=== PATIENT | male | born 1955 | race Caucasian/White ===

== ENCOUNTER 2023-08-01 05:58 | Day surgery (SDC) | payer OTHER ==
[2023-08-01] VITALS (12 sets, daily range): BP systolic 120–155; BP diastolic 63–83; PULSE 51–66; RESP 14–20
[~2023-08-01] VITALS: Ht 177.8 cm; Wt 74.8 kg
[~2023-08-01 05:58] MED LIST: CARB1DRO40 OP; CYAN100099 PO; DICLOFENAC TOPICAL TP; FAMO40TA7 PO; LEVO-70 PO; LISI10TA24 PO; LORA10TA7 PO; METO5TAB2 PO; PANT40TA54 PO; SIMVASTATIN PO
[2023-08-01] MEDS: 0.9%NACL 1000ML 1,000 ML IV ONE (06:45)
[2023-08-01] MEDS ORDERED: LIDOCAINE HCL 1% 20 ML VIAL ONE (07:06)
[2023-08-01] MEDS ORDERED: PROPOFOL 10 MG/ML 20ML VIAL IV ONE ×3 (07:06→07:37)
== END 2023-08-01 09:10 | disposition home or self-care (01) ==
LOC: ENDO 05:58 → DAH 05:58 → ENDO 09:10
PROVIDERS: ATTEND Internal Medicine Gastroenterology
DX: R93.3 Abnormal findings on diagnostic imaging of other parts of digestive tract (principal); R93.2 Abnormal findings on diagnostic imaging of liver and biliary tract; K22.2 Esophageal obstruction; R13.10 Dysphagia, unspecified; I10 Essential (primary) hypertension; E78.2 Mixed hyperlipidemia; K44.9 Diaphragmatic hernia without obstruction or gangrene; K80.20 Calculus of gallbladder without cholecystitis without obstruction; E11.43 Type 2 diabetes mellitus with diabetic autonomic (poly)neuropathy; K31.84 Gastroparesis; F32.A Depression, unspecified; Z79.899 Other long term (current) drug therapy; Z79.01 Long term (current) use of anticoagulants
CPT/HCPCS: 43238; 43248; J7030; J2704 ×3; A4620; A4215 ×3; A4223; A4222; A4221; A4663; A4606; J3490

== ENCOUNTER 2024-10-16 11:36 | Emergency (ER) | payer OTHER, MEDICARE ==
[~2024-10-16] VITALS: Ht 177.8 cm; Wt 73.5 kg
[~2024-10-16 11:36] MED LIST changes: +CYAN-37 PO; -CYAN100099 PO
--- NOTE | 2024-10-16 11:55 | ERN ---
ED Note History of Present Illness Stated Complaint: FEVER, WEAKNESS Chief Complaint: Fever Time Seen by MD: 11:39 Dictation: PATIENT IS A 68-YEAR-OLD MALE HERE WITH HIS WITH COMPLAINTS OF FEVER CHILLS GENERALIZED BODY WEAKNESS AND ESOPHAGEAL PAIN HE HAS HAD FOR SEVERAL DAYS. NO NAUSEA VOMITING. HE STATES HE DOES NOT HAVE AN APPETITE. STATES HE HAD A RECENT EGD 3-4 DAYS AGO BY AT [facility], WAS TOLD HE HAD ESOPHAGEAL INFLAMMATION. HE STATES HE WAS GOING TO BE STARTED ON S OME MEDICATIONS THAT WERE SENT TO THE [facility] HOWEVER THEY WERE NOT READY OF TODAY. HE STATES HE CAME IN TODAY FOR FURTHER EVALUATION AND TREATMENT. STATES HE IS NO LONGER ON CHEMOTHERAPY FOR HIS ESOPHAGEAL CANCER. STATES HE WAS SEEING AT [facility] FOR CHEMOTHERAPY, THAT IS STOPPED LAST YEAR AND HE WAS TOLD HE WAS IN REMISSION. Allergies: Coded Allergies: Iodinated Contrast Media (Unverified Allergy, Unknown, 07/31/23) naproxen (Unverified Allergy, Unknown, 07/31/23) Home Meds Reported Medications Carboxymethylcellulose Sodium (Carboxymethylcellulose Sodium) 0.5 % Droperette, 1 EACH OP BID, DROP 07/31/23 Loratadine (Loratadine) 10 Mg Tablet, 10 MG PO HS, TAB 07/31/23 Lisinopril (Lisinopril) 10 Mg Tablet, 10 MG PO HS, TAB 07/31/23 [Diclofenac Topical] No Conflict Check, 1 % TP AM 07/31/23 Famotidine (Famotidine) 40 Mg Tablet, 40 MG PO HS, TAB 07/31/23 Cyanocobalamin (Vitamin B-12) (B-12) 1,000 Mcg Tablet, 1000 MCG PO AM, TAB 07/31/23 Pantoprazole Sodium (Pantoprazole Sodium) 40 Mg Tablet.dr, 40 MG PO AM, TAB 07/31/23 Metoclopramide HCl (Metoclopramide HCl) 5 Mg Tablet, 5 MG PO QID, TAB 07/31/23 Levofloxacin (Levofloxacin) 500 Mg Tablet, 500 MG PO AM, TAB 07/31/23 [Simvastatin] No Conflict Check, 80 MG PO HS 07/31/23 Past Medical History Past Medical History: Cancer, GERD, High Cholesterol, Hypertension Additional Past Medical Hx: HX OF ESOPHAGEAL CA, HIALTAL HERNIA Surgical History: Other Surgical History Other: NECK RN Note Reviewed/Agreed w/PFSH: Yes Review of System Dictation CONSTITUTIONAL: NEGATIVE EXCEPT FOR HPI HEAD/FACE: NEGATIVE EXCEPT FOR HPI EENT: NEGATIVE EXCEPT FOR HPI RESPIRATORY: NEGATIVE EXCEPT FOR HPI GASTROINTESTINAL/ABDOMINAL: NEGATIVE EXCEPT FOR HPI PATIENT STATES HE HAS A BURNING SENSATION FROM ESOPHAGUS DOWN TO EPIGASTRIUM GENITOURINARY: NEGATIVE EXCEPT FOR HPI MUSCULOSKELETAL: NEGATIVE EXCEPT FOR HPI INTEGUMENTARY: NEGATIVE EXCEPT FOR HPI NEUROLOGICAL/PSYCH: NEGATIVE EXCEPT FOR HPI HEMATOLOGIC/LYMPHATIC: NEGATIVE EXCEPT FOR HPI ALL SYSTEMS NEGATIVE, EXCEPT NOTED ABOVE. 13 POINT REVIEW OF SYSTEMS ASSESSED AND ALL NEGATIVE EXCEPT FOR ABOVE. Initial Vital Sign VS Vital Signs Date Time Temp Pulse Resp B/P (MAP) Pulse Ox O2 Delivery O2 Flow Rate FiO2 10/16/24 11:38 99.9 96 16 145/89 98 Room Air 0 10/16/24 12:03 21 Physical Exam Dictation VITAL SIGNS REVIEWED GENERAL APPEARANCE: ALERT, ORIENTED X 3, NO ACUTE DISTRESS, WELL DEVELOPED, NOURISHED. HEAD AND FACE: NON-TRAUMATIC. EYES: PERRL, PINK CONJUNCTIVAS, EYELID NO TRAUMA, ANTERIOR CHAMBER WITH ARCUS SENILIS. EARS: PINNAS INTACT AND NO SIGNS OF TRAUMA OR ERYTHEMA EAR CANALS CLEAR AND NO DISCHARGE TM NO ERYTHEMA NOSE: NO DISCHARGE, NO BLEEDING. OROPHARYNX: MOUTH NORMAL, TONGUE PINK, PHARYNX CLEAR,NO ERYTHEMA, TONSILS NO EXUDATES, NO ABSCESSES NOTED, MUCOUS MEMBRANE MOIST NECK: SUPPLE, NON-TENDER, NO THYROMEGALY, NO MASSES, NO JVD, NO BRUITS BREAST:DEFERRED CHEST:NO TENDERNESS, NO CREPITUS, NO PARADOXICAL MOVEMENT, NO RETRACTIONS LUNGS:CLEAR, WELL-VENTILATED, SYMMETRIC, NO RALES, NO WHEEZING, NO RHONCHI, NO STRIDOR, GOOD BREATH SOUNDS BILATERALLY HEART: REGULAR RATE, REGULAR RHYTHM, NO MURMUR, NO GALLOPS VASCULAR: NO PERIPHERAL EDEMA, ABDOMEN: SOFT, POSITIVE BOWEL SOUNDS, NONDISTENDED, NO GUARDING, MILD EPIGASTRIC TENDERNESS, NO REBOUND, NO MASSES NO HEPATOMEGALY, NO SPLENOMEGALY, NO LAWSON'S SIGN, NO HERNIAS. RECTAL: DEFERRED GENITAL: DEFERRED NEUROLOGICAL: NORMAL SPEECH, MOTOR FUNCTION INTACT, SENSORY FUNCTION INTACT MUSCULOSKELETAL: NECK NONTENDER, FULL RANGE OF MOTION, BACK NONTENDER, FULL RANGE OF MOTION, EXTREMITIES: NONTENDER, FULL RANGE OF MOTION SKIN: COLOR PINK, DRY, NO TURGOR, NO RASH, NO LACERATIONS, NO ABRASIONS, NO CONTUSIONS. LYMPHATIC: DEFERRED Results (Laboratory/Radiology) Laboratory/Radiology Laboratory Tests Test 10/16/24 12:20 White Blood Count 6.4 K/uL (4.8-10.8) Red Blood Count 4.36 MIL/uL (4.50-6.20) L Hemoglobin 14.0 g/dL (14.0-18.0) Hematocrit 41.4 % (42-54) L Mean Corpuscular Volume 95.0 fL (79-99) Mean Corpuscular Hemoglobin 32.1 pg (27.0-33.0) Mean Corpuscular Hemoglobin Concent 33.8 g/dL (32.0-36.0) Red Cell Distribution Width 14.8 % (11.0-15.5) Platelet Count 177 K/uL (130-400) Mean Platelet Volume 9.0 fL (7.5-10.5) Immature Granulocyte % (Auto) 0.3 % (0-1) Neutrophils (%) (Auto) 80.5 % (40.0-77.0) H Lymphocytes (%) (Auto) 9.1 % (21.0-51.0) L Monocytes (%) (Auto) 9.6 % (3.0-13.0) Eosinophils (%) (Auto) 0.2 % (0.0-8.0) Basophils (%) (Auto) 0.3 % (0.0-5.0) Neutrophils # (Auto) 5.1 K/uL (1.8-7.7) Lymphocytes # (Auto) 0.6 K/uL (1.0-4.8) L Monocytes # (Auto) 0.6 K/uL (0.1-1.0) Eosinophils # (Auto) 0.01 K/uL (0.00-0.70) Basophils # (Auto) 0.02 K/uL (0.00-0.20) Absolute Immature Granulocyte (auto 0.02 K/uL (0-1) Nucleated Red Blood Cells 0.0 % (0.0-0.19) White Cell Morphology Comment See comments Sodium Level 131 mmol/L (136-145) L Potassium Level 3.9 mmol/L (3.5-5.1) Chloride Level 95 mmol/L (101-111) L Carbon Dioxide Level 26 mmol/L (21-32) Blood Urea Nitrogen 11 mg/dL (7-18) Creatinine 0.7 mg/dL (0.5-1.3) Glomerular Filtration Rate Calc 100 mL/min (>90) Random Glucose 100 mg/dL (70-105) Lactic Acid Level 1.3 mmol/L (0.8-2.5) Total Calcium 8.7 mg/dL (8.5-10.1) Troponin I High Sensitivity 9 ng/L (4-75) Lipase 33 U/L (16-77) Labs Reviewed?: Yes EKG Comment: EKG HE SINUS RHYTHM/HEART RATE 80/AXIS NORMAL/LEFT ATRIAL ENLARGEMENT ED Course ED Course Orders Procedure Category Date Status Time Cbc With Differential LAB 10/16/24 Complete 11:45 Troponin I High LAB 10/16/24 Complete Sensitivity 11:45 12 Lead Ekg Tracing- EKG 10/16/24 Complete Technical 11:45 Pantoprazole 40mg Inj PHA 10/16/24 Complete (Protonix 40mg Inj 12:00 Lipase LAB 10/16/24 Complete 11:45 Basic Metabolic Panel LAB 10/16/24 Complete 11:45 Blood Cult COLLINS 10/16/24 In Process 11:47 Lactic Acid LAB 10/16/24 Complete 11:47 0.9%Nacl 1000ml (Ns PHA 10/16/24 Complete 1000ml) 12:00 Urinalysis Profile LAB 10/16/24 Logged 11:47 Lidocaine Hcl 2% PHA 10/16/24 Complete Viscous (Lidocaine Hcl 12:00 Mag/Alum/Simeth 30ml PHA 10/16/24 Complete (Maalox Plus 30ml) 12:00 Dicyclomine Hcl PHA 10/16/24 Complete (Bentyl 10mg/5ml 12:00 Current Medications Medications (Trade) Dose Ordered Sig/Osman Route PRN Reason Start Time Stop Time Status Last Admin Dose Admin Al Hydroxide/Mg Hydroxide (MAALox PLUS 30ML) 30 ml ONCE ONCE PO 10/16/24 12:00 10/16/24 12:01 DC 10/16/24 12:11 Dicyclomine HCl (Bentyl 10mg/5ml Syrup) 10 mg ONCE ONCE PO 10/16/24 12:00 10/16/24 12:01 DC 10/16/24 12:13 Lidocaine HCl (Lidocaine HCl 2% Viscous) 10 ml ONCE ONCE PO 10/16/24 12:00 10/16/24 12:01 DC 10/16/24 12:11 Pantoprazole Sodium (PROTonix 40MG INJ) 40 mg ONCE ONCE IVP 10/16/24 12:00 10/16/24 12:01 DC 10/16/24 12:14 Sodium Chloride 1,000 ml @ 0 mls/hr ONCE ONCE IV 10/16/24 12:00 10/16/24 12:01 DC 10/16/24 12:16 Vital Signs Date Time Temp Pulse Resp B/P (MAP) Pulse Ox O2 Delivery O2 Flow Rate FiO2 10/16/24 12:03 98.4 104 18 156/86 97 Room Air* 0 21 10/16/24 11:38 99.9 96 16 145/89 98 Room Air 0 1420/WITH PATIENT AT LENGTH REGARDING CLINICAL FINDINGS AND TREATMENT FOR A SALPINGITIS BASED ON HIS RECENT ENDOSCOPY BY . HE STATES HE SMOKES CIGARETTES AND DRINKS SEVERAL CUPS OF COFFEE DAILY ALONG WITH DIET PEPSI. ADDITIONALLY HE SAID HE EATS SPICY FOODS. I ADVISED HIM THAT THE TREATMENT FOR ESOPHAGITIS WAS DIETARY MODIFICATIONS, LIFESTYLE CHANGES AND MEDICATIONS. 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 I WE WILL START HIM ON CARAFATE AND OMEPRAZOLE. AT THE BEDSIDE AND THEY BOTH SAID THEY UNDERSTOOD THE INSTRUCTIONS HEART Score Response (Comments) Value EKG: Repolarization changes 1 Age: > 65yrs (+2) 2 Risk Factors: 1-2 risk factors (+1) 1 Initial Troponin: Normal limit (0) 0 Total 4 Medical Decision Making MDM MDM: DIFFERENTIAL DIAGNOSIS: ACS/AMI/GASTRITIS/ESOPHAGITIS/ELECTROLYTE IMB ALANCE/DEHYDRATION RATIONALE: TESTS CONSIDERED AND ORDERED SECONDARY TO SHARED DECISION MAKING INCLUDE: MEDICATION/LABS/EKG PREVIOUS OUTSIDE RECORDS REVIEWED: OLD ER VISITS. RISK OF COMPLICATION AND/OR MORBIDITY OR MORTALITY OF PATIENT MANAGEMENT: NONE MEDICATIONS-PER MEDICATION RECONCILIATION NEED FOR HOSPITALIZATION: PATIENT DOES NOT MEET CRITERIA FOR HOSPITALIZATION. NO NEED FOR EMERGENCY MAJOR/MINOR SURGERY: NO THERE ARE NO SOCIAL CONCERNS WITH THIS PATIENT. PATIENT ABUSES TOBACCO, DRINKS ALCOHOL SOCIALLY, SODA POP DAILY PRESCRIPTION DRUG MANAGEMENT CARAFATE/OMEPRAZOLE PRESCRIPTIONS WILL INCLUDE SYMPTOMATIC CARE PATIENT'S PRIOR EXTERNAL MEDICAL RECORDS FROM OTHER ER VISITS WERE REVIEWED BY ME INDICATED. PRIOR TESTING AND RESULTS FROM PREVIOUS VISITS WERE REVIEWED. PRIOR TESTS WERE TAKEN INTO ACCOUNT WITH MEDICAL DECISION MAKING AND RESOURCE UTILIZATION, INDEPENDENT HISTORIAN/HISTORIANS WERE USED TO OBTAIN COMPLETE MEDICAL HISTORY. I INDEPENDENTLY INTERPRETED THE TEST THAT WERE PERFORMED, RESULTS WERE REVIEWED BY ME AND CONSIDERED FINDINGS ON RADIOLOGY IF ORDERED. MEDICAL MANAGEMENT AND EXAMINATION INTERPRETATION DISCUSSIONS WERE HAD BY ME WITH OTHER QUALIFIED HEALTHCARE PROFESSIONALS INDICATED FOR THE PATIENT'S CARE. DX & DISP Disposition: Discharge Departure Impression: Primary Impression: Esophagitis Additional Impressions: Hyponatremia, Hypochloremia, Tobacco abuse Condition: Stable Scripts Sucralfate (Carafate) 1 Gram Tablet 1 GM PO ACHS for 10 Days, #40 TAB Prov: GENA WINCHESTER BALLING HEAD TENDER 10/16/24 Omeprazole (Omeprazole) 40 Mg Capsule.dr 1 CAP PO DAILY for 30 Days, #30 CAP 0 Refills Prov: GENA WINCHESTER BALLING HEAD TENDER 10/16/24 Additional Instructions: FOLLOW-UP WITH PRIMARY CARE PROVIDER IN 1 TO 2 DAYS. TAKE MEDICATIONS DIRECTED HERE IN THE EMERGENCY ROOM. OKAY TO CONTINUE HOME MEDICATIONS UNLESS OTHERWISE DISCUSSED DURING YOUR VISIT IN THE EMERGENCY ROOM TODAY. RETURN TO YOUR NEAREST EMERGENCY ROOM IF SYMPTOMS WORSEN OR IF THERE IS NO IMPROVEMENT. CALL 911 IF YOU NEED IMMEDIATE ASSISTANCE. TAKE TYLENOL OR MOTRIN [id number] NEEDED AND IF NO CONTRAINDICATIONS ARE PRESENT. INCREASE ORAL HYDRATION. A WOUND CULTURE OR URINE CULTURE WAS ORDERED HERE IN THE EMERGENCY ROOM DEPARTMENT PLEASE FOLLOW-UP WITH PRIMARY CARE PROVIDER AND ADVISE THEM TO GET REPEAT PORTS FROM OUR FACILITY. IF YOU HAD ANY LUKE WRAP/SPLINTS THAT WERE APPLIED HERE, PLEASE DO NOT REMOVE THEM UNTIL YOU SEE YOUR PRIMARY CARE OR SPECIALTY. STOP SMOKING. WATER FOR FLUIDS ONLY WITH MEALS. STOP ALCOHOL, TOBACCO, SPICY FOODS, CITRUS FRUIT JUICE, SODA POP, ICE TEA, COFFEE UNTIL CLEARED BY YOUR SQL PROGRAMMER ANALYST. Referrals: SELF,REFERRAL (PCP) Time of Disposition: 14:23 I have reviewed the case, and I agree with, Diagnosis and Plan GENA WINCHESTER NP Oct 16, 2024 11:55
[2024-10-16] MEDS: MAG/ALUM/SIMETH 30 ML UDCUP PO ONE (12:11)
[2024-10-16] MEDS: LIDOCAINE HCL 2% VISCOUS 15 ML UDCUP PO ONE (12:11)
[2024-10-16] MEDS: DICYCLOMINE HCL 10 MG/5 ML ML PO ONE (12:13)
[2024-10-16] MEDS: PANTOPrazole 40 MG/VIAL IVP ONE (12:14)
[2024-10-16] MEDS: 0.9%NACL 1000ML 1,000 ML IV ONE (12:16)
[2024-10-16 12:33] LABS: BASOPHILS # (AUTO) 0.02 K/uL (0.00-0.20); BASOPHILS % (AUTO) 0.3 % (0.0-5.0); EOSINOPHILS # (AUTO) 0.01 K/uL (0.00-0.70); EOSINOPHILS % (AUTO) 0.2 % (0.0-8.0); HEMATOCRIT 41.4 % (42-54); IMMATURE GRANULOCYTE ABSOLUTE 0.02 K/uL (0-1); LYMPHOCYTES # (AUTO) 0.6 K/uL (1.0-4.8); LYMPHOCYTES % (AUTO) 9.1 % (21.0-51.0); MEAN CORPUSCULAR HEMOGLOBIN 32.1 pg (27.0-33.0); MEAN CORPUSCULAR HGB CONC 33.8 g/dL (32.0-36.0); MONOCYTES # (AUTO) 0.6 K/uL (0.1-1.0); MONOCYTES % (AUTO) 9.6 % (3.0-13.0); NEUTROPHILS # (AUTO) 5.1 K/uL (1.8-7.7); NEUTROPHILS % (AUTO) 80.5 % (40.0-77.0); PLATELET COUNT (AUTO) 177 K/uL (130-400); RED BLOOD CELL COUNT(AUTO) 4.36 MIL/uL (4.50-6.20); RED CELL DISTRIBUTION WIDTH 14.8 % (11.0-15.5); WHITE BLOOD COUNT (AUTO) 6.4 K/uL (4.8-10.8)
[2024-10-16 12:40] LABS: CREATININE 0.7 mg/dL (0.5-1.3); POTASSIUM 3.9 mmol/L (3.5-5.1)
--- NOTE | 2024-10-16 12:40 | EKG ---
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
[2024-10-16] MEDS ORDERED: OMEP40CA21 PO (14:24)
[2024-10-16] MEDS ORDERED: SUCR1TAB28 PO (14:24)
[2024-10-16 15:08] VITALS: BP 147/92; PULSE 82; RESP 22; TEMP 98.3; O2SAT 96
--- NOTE | 2024-10-16 15:26 | NUR ---
PATIENT WAS DC'D BY DR SRIRAM Martinez DC'D PATIENTS IV WITH CATH STILL INTACT AND APPLIED 2X2 GAUZE WITH TAPE I EXPLAINED TO PATIENT TO FOLLOW UP WITH PCP, PROVIDED INFO BASED ON DIAGNOSIS AND EXPLAINED NEW PRESCRIPTIONS AND HOW TO TAKE THEM I ALSO ANSWERED ANY FURTHER QUESTIONS THE PATIENT HAD PATIENT AMBULATED OUT OF ED, NO COMPLICATIONS
== END 2024-10-16 15:25 | disposition home or self-care (01) ==
LOC: EDH 11:36
DX: K20.90 Esophagitis, unspecified without bleeding (principal); E87.1 Hypo-osmolality and hyponatremia; E87.8 Other disorders of electrolyte and fluid balance, not elsewhere classified; E78.00 Pure hypercholesterolemia, unspecified; I10 Essential (primary) hypertension; Z72.0 Tobacco use; Z85.01 Personal history of malignant neoplasm of esophagus; Z88.6 Allergy status to analgesic agent; Z91.041 Radiographic dye allergy status
CPT/HCPCS: 99284; 96374; 96361; 84484; 80048; 83690; 85025; 87040 ×2; 83605; 36415; 93005; J7030; J2470